=== PATIENT | female | born 1975 | race Caucasian/White ===

== ENCOUNTER 2024-07-08 14:39 | Observation (INO) ==
--- NOTE | 2024-07-08 14:50 | Emergency Department Note ---
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 Patient denies any SOB, back pain, abdominal pain, numbness, tingling, weakness or N/V. Patient states she has had dizziness and chest pain on and off for 3 days MD complaint: Reports chest pain Onset (ago): hour(s) (4) Timing of current episode: Reports episodic Onset: Reports during rest Pain location: Reports substernal Pain radiation: Reports none Severity: mild Quality: Reports tightness Relieving factors: Reports nothing Exacerbating factors: Reports nothing Associated symptoms: Reports syncope Treatment prior to arrival: Reports none Risk Factors Coronary artery disease risk factors: Reports hypertension Thoracic aortic dissection risk factors: Reports none Pulmonary embolism risk factors: Reports none Related Data Allergies Allergy/AdvReac Type Severity Reaction Status Date / Time No Known Drug Allergies Allergy Verified 07/08/24 14:45 Review of Systems Status of ROS 10 or more systems reviewed and unremark able except as noted in history and below Constitutional Denies: fever, chills, change in weight, fatigue, malaise, night sweats or change in sleep pattern Eyes Denies: change in vision, blurry vision, blind spots, light sensitivity or eye discomfort Ears, nose, mouth, and throat Denies: throat pain, neck pain, throat swelling, difficulty swallowing, hoarseness, mouth pain or swelling of lips/tongue Cardiovascular Reports: chest pain and lightheadedness; Denies: palpitations, edema, swelling of feet/ankles, shortness of breath with exertion or shortness of breath when lying down Respiratory Denies: shortness of breath, cough, wheezing, stridor, pain on inspiration or change in phlegm color Gastrointestinal Denies: abdominal pain, nausea, vomiting, coffee grounds in vomit, heartburn or diarrhea Genitourinary Denies: painful urination, urinary frequency, urinary urgency, urinary incontinence, blood in urine, difficulty voiding or decreased urine ouput Musculoskeletal Denies: back pain, neck pain, extremity pain, extremity swelling, joint pain, limited range of motion or joint swelling Integumentary/Breast Denies: rash, itching, redness, skin pain, skin tenderness, skin swelling, sores, new lesion or stretch narayan Neurological Reports: dizziness and vertigo; Denies: headache, numbness in e xtremities, weakness in extremities, lack of coordination, confusion, behavioral changes or slurred speech Psychiatric Denies: anxiety, mood swings, panic attacks, change in sleep pattern, hopelessness or loss of interest Endocrine Denies: excessive urination, excessive thirst, fatigue, cold intolerance or excessive sweating Hematologic/Lymphatic Denies: easy bruising, easy bleeding or enlarged lymph nodes Allergic/Immunologic Denies: hives, throat swelling, tongue swelling, facial swelling or wheezing Exam Constitutional: normal general appearance and no apparent distress Vital Signs - 24 hr 07/08/24 14:39 07/08/24 14:39 07/08/24 15:23 Temperature 97.9 F Pulse Rate 81 80 Respiratory Rate 20 Blood Pressure 154/94 132/84 Pulse Oximetry 100 100 Oxygen Delivery Ks thod Room Air Room Air 07/08/24 15:23 07/08/24 15:23 Temperature Pulse Rate 82 78 Respiratory Rate Blood Pressure 139/85 139/85 Pulse Oximetry Oxygen Delivery Ks thod HENMT: normocephalic, head/scalp atraumatic, hearing grossly normal bilaterally, external ears normal and EACs normal Eyes: PERRL, EOMs intact bilaterally, conjunctivae normal and no scleral icterus Neck/C-Spine: visual inspection normal and trachea midline Lymph: no lymphadenopathy noted Chest: inspection of chest normal Respiratory: breath sounds equal bilaterally, normal respiratory effort, clear to auscultation bilaterally, no wheezes, no rales, no retractions, no use of accessory muscles and chest percussion normal Cardiovascular: normal heart rate noted, regular rhythm noted, no gallop, no rub, no murmur, no JVD, no clicks, peripheral pulses 2+ throughout, no bruits noted and no additional abnormal heart sounds Gastrointestinal: abdomen normal to inspection, abdomen soft to palpation, nontender to palpation, nontender to percussion, nondistended, normoactive bowel sounds, no hepatosplenomegaly, no masses, no pulsatile mass, no ascites and no hernia Genitourinary: no CVA tenderness Back/Pelvis: spine normal to inspection Extremities: normal to inspection, normal to palpation, no tenderness, full ROM, no joint enlargement and no deformity 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 VSS, no s/s of acute distress noted Vital Signs Vital signs: Vital Signs Temperature 97.9 F 07/08/24 14:39 Pulse Rate 81 07/08/24 14:39 Respiratory Rate 20 07/08/24 14:39 Blood Pressure 154/94 07/08/24 14:39 Pulse Oximetry 100 07/08/24 14:39 Oxygen Delivery Method Room Air 07/08/24 14:39 Temperature 97.9 F 07/08/24 14:39 Pulse Rate 78 07/08/24 15:23 Respiratory Rate 20 07/08/24 14:39 Blood Pressure 139/85 07/08/24 15:23 Pulse Oximetry 100 07/08/24 14:39 Oxygen Delivery Method Room Air 07/08/24 14:39 MDM - Chest Pain Differential Diagnosis Differential diagnosis: Likely stable angina Medical Records Data Attestation: I reviewed the patient's medical records. Lab Data Attestation: I reviewed the patient's lab results. Labs: Lab Results 07/08/24 Range/Units 15:00 WBC 7.9 (4.3-9.3) K/uL RBC 4.1 (4.00-5.50) M/uL Hgb 11.4 L (12.5-15.8) gm/dL Hct 34.3 L (35.9-46.7) % MCV 83.7 (81.0-93.7) fl MCH 27.7 (27.6-32.2) pg MCHC 33.1 (33.1-35.3) g/dl RDW 13.4 (11.4-14.2) % Plt Count 304 (152-353) K/uL MPV 8.7 (6.9-10.8) fl Gran % 76.4 H (47.8-71.3) % Lymph % (Auto) 15.5 L (20.0-43.0) % [place] % (Auto) 5.9 (3.6-9.8) % Eos % (Auto) 1.4 (0.4-2.8) % Baso % (Auto) 0.8 (0.1-0.85) Lymph # (Auto) 1.2 (1.1-3.1) [place] # (Auto) 0.5 L (1.1-3.1) Eos # (Auto) 0.1 (0.0-0.2) Baso # (Auto) 0.1 (0.0-0.1) Absolute Gran (auto) 6.0 (2.3-6.0) D-Dimer 1410 H (100-600) ng/mL Sodium 139 (136-145) mmol/L Potassium 3.5 L (3.6-5.2) mmol/L Chloride 102.0 (98-107) mmol/L Carbon Dioxide 29 (21-32) mmol/L Anion Gap 8.0 (4-14) mEq/L BUN 15 (7-18) mg/dL Creatinine 0.8 (0.6-1.3) mg/dL Estimated GFR 90.8 (>59.9) Glucose 114 H (70-110) mg/dL Calcium 9.3 (8.5-10.1) mg/dL Total Bilirubin 0.36 (0.0-1.0) mg/dL AST 26 (15-37) U/L ALT 39 (30-65) U/L Alkaline Phosphatase 86 (50-136) U/L Troponin I High Sens <4.00 L (4.0-60.4) ng/L Total Protein 7.5 (6.4-8.2) g/dL Albumin 3.5 (3.4-5.0) g/dL Imaging Data Imaging ordered: CT scan - chest Attestation: I have reviewed the pertinent imaging results. ECG Data Attestation: I have reviewed the pertinent ECG results. Discharge Plan Discharge Patient Disposition: Admitted As Observation Condition: Stable Chief Complaint: Chest Pain Clinical Impression: Chest pain, Syncope, Cholelithiasis Print Language: Armenian Referrals: Mariam Pulido [Primary Care Provider] - Time of Disposition: 18:38 [facility] Medical History (Updated 07/08/24 @ 14:48 by Tory Dash RN) ADD (attention deficit disorder) Social History Smoking status: never smoker
[2024-07-08 15:07] LABS: Basophils #(Absolute) Auto 0.1 (0.0-0.1); Basophils%(Percent) Auto 0.8 (0.1-0.85); Eosinophils#(Absolute)Auto 0.1 (0.0-0.2); Eosinophils%(Percent) Auto 1.4 % (0.4-2.8); Granulocytes % - Auto 76.4 % (47.8-71.3); Hematocrit 34.3 % (35.9-46.7); Mean Corpuscular Volume 83.7 fl (81.0-93.7); Monocytes #(Absolute)- Auto 0.5 (1.1-3.1); Monocytes %(Percent)- Auto 5.9 % (3.6-9.8); Platelet Count 304 K/uL (152-353); White Blood Count 7.9 K/uL (4.3-9.3)
[2024-07-08 15:14] LABS: Carbon Dioxide 29 mmol/L (21-32); Glucose 114 mg/dL (70-110); Potassium 3.5 mmol/L (3.6-5.2); Sodium 139 mmol/L (136-145)
[2024-07-08] MEDS ORDERED: PIPERACILLIN SODIUM/TAZOBACTAM 3.375 GM VIAL IV ONE (19:55)
[2024-07-08] MEDS ORDERED: 0.9 % SODIUM CHLORIDE MB+ 100 ML IV ONE (19:55)
[2024-07-08] MEDS: PIPERACILLIN/TAZOBACTAM 3.375 3.375 GM in 0.9 % SODIUM CHLORIDE MB+ 100 ML IV STA (19:56)
[2024-07-08] MEDS ORDERED: ONDANSETRON HCL/PF 4 MG/2 ML VIAL ONE (20:08)
[2024-07-08] MEDS: ONDANSETRON HCL/PF 4 MG/2 ML VIAL IVP ONE (20:13)
[2024-07-08] MEDS ORDERED: NITROGLYCERIN 0.4 MG TAB.SUBL (BOTTLE) SL PRN (20:42)
[2024-07-08] MEDS ORDERED: MORPHINE SULFATE 2 MG/ML CARTRIDGE IV ONE (20:55)
[2024-07-08] MEDS: MORPHINE SULFATE 2 MG/ML CARTRIDGE IV PRN (20:59)
[2024-07-09] MEDS: PIPERACILLIN/TAZOBACTAM 3.375 3.375 GM in 0.9 % SODIUM CHLORIDE MB+ 100 ML IV SCH (02:29)
[2024-07-09 04:34] LABS: Basophils%(Percent) Auto 0.5 (0.1-0.85); Granulocytes % - Auto 88.9 % (47.8-71.3); Granulocytes#(Absolute)- Auto 6.3 (2.3-6.0); Hematocrit 34.3 % (35.9-46.7); Mean Corpuscular Volume 83.9 fl (81.0-93.7); Monocytes #(Absolute)- Auto 0.3 (1.1-3.1); Monocytes %(Percent)- Auto 4.8 % (3.6-9.8); Platelet Count 241 K/uL (152-353)
[2024-07-09 04:37] LABS: INR 1.11
[2024-07-09 04:47] LABS: Potassium 3.8 mmol/L (3.6-5.2)
[2024-07-09] MEDS: BUDESONIDE 0.5 MG/2 ML AMPUL.NEB INH SCH (08:42)
[2024-07-09] MEDS: ENOXAPARIN SODIUM 40 MG/0.4 ML SYRINGE SUBQ SCH (09:46)
[2024-07-09] MEDS: PANTOPRAZOLE SODIUM 40 MG TABLET.DR PO SCH (09:46)
[2024-07-09] MEDS: ASPIRIN 81 MG TAB.CHEW PO SCH (09:47)
[2024-07-09] MEDS: IPRATROPIUM/ALBUTEROL SULFATE 3 ML AMPUL.NEB INH SCH ×2 (11:27→16:21)
--- NOTE | 2024-07-09 12:06 | History & Physical Report ---
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 Patient denies any SOB, back pain, abdominal pain, numbness, tingling, weakness or N/V. Patient states she has had dizziness and chest pain on and off for 3 days. Admitted patient to med/surg for further observation and treatment. Day two of hospital stay, patient's chief complaint is epigastric pain and a headache. Symptoms relieved by morphine. Review of Systems Status of ROS 10 or more systems reviewed and unremark able except as noted in history and below Constitutional Denies: fever, chills, change in weight, fatigue, malaise, night sweats or change in sleep pattern Eyes Denies: change in vision, blurry vision, blind spots, light sensitivity or eye discomfort Ears, nose, mouth, and throat Reports: vertigo; Denies: throat pain, neck pain, throat swelling, difficulty swallowing, hoarseness, mouth pain or swelling of lips/tongue Cardiovascular Reports: chest pain and lightheadedness; Denies: palpitations, edema, swelling of feet/ankles, shortness of breath with exertion or shortness of breath when lying down Respiratory Denies: shortness of breath, cough, wheezing, stridor, pain on inspiration or change in phlegm color Gastrointestinal Denies: abdominal pain, nausea, vomiting, coffee grounds in vomit, heartburn, diarrhea or difficulty swallowing Genitourinary Denies: painful urination, urinary frequency, urinary urgency, urinary incontinence, blood in urine, difficulty voiding or decreased urine ouput Musculoskeletal Denies: back pain, neck pain, extremity pain, extremity swelling, joint pain, limited range of motion or joint swelling Integumentary/Breast Denies: rash, itching, redness, skin pain, skin tenderness, skin swelling, sores, new lesion or stretch narayan Neurological Reports: dizziness and vertigo; Denies: headache, numbness in extremities, weakness in extremities, lack of coordination, confusion, behavioral changes or slurred speech Psychiatric Denies: anxiety, mood swings, panic attacks, change in sleep pattern, hopelessness or loss of interest Endocrine Denies: excessive urination, excessive thirst, fatigue, cold intolerance or excessive sweating Hematologic/Lymphatic Denies: easy bruising, easy bleeding or enlarged lymph nodes Allergic/Immunologic Denies: hives, throat swelling, tongue swelling, facial swelling or wheezing PFSH PFSH Medical History ADD (attention deficit disorder) Social History Smoking status: never smoker Problems where you live: no known problems Highest level of school completed/degree received: decline to answer Meds Home Medications and Allergies Allergies Allergy/AdvReac Type Severity Reaction Status Date / Time No Known Drug Allergies Allergy Verified 07/08/24 14:45 Exam Exam: Patient in mild distress with epigastric pain and headache. Constitutional: abnormal general appearance (disheveled), distress noted (mild), abnormal body habitus (obese), no limitations and alert Vital Signs - 24 hr 07/08/24 14:39 07/08/24 14:39 07/08/24 15:23 Temperature 97.9 F Pulse Rate 81 80 Pulse Rate [Brachi al] Respiratory Rate 20 Blood Pressure 154/94 132/84 Blood Pressure [Ri ght Arm] Pulse Oximetry 100 100 Oxygen Delivery Me thod Room Air Room Air Oxygen Flow Rate 07/08/24 15:23 07/08/24 15:23 07/08/24 15:30 Temperature Pulse Rate 82 78 85 Pulse Rate [Brachi al] Respiratory Rate 20 Blood Pressure 139/85 139/85 149/82 Blood Pressure [Ri ght Arm] Pulse Oximetry 100 Oxygen Delivery Ok thod Room Air Oxygen Flow Rate 07/08/24 16:00 07/08/24 16:30 07/08/24 17:00 Temperature Pulse Rate 81 79 77 Pulse Rate [Brachi al] Respiratory Rate 20 20 20 Blood Pressure 132/84 139/85 122/82 Blood Pressure [Ri ght Arm] Pulse Oximetry 100 100 100 Oxygen Delivery Me thod Room Air Room Air Room Air Oxygen Flow Rate 07/08/24 18:00 07/08/24 19:00 07/08/24 20:00 Temperature Pulse Rate 86 81 76 Pulse Rate [Brachi al] Respiratory Rate 20 20 20 Blood Pressure 134/61 116/76 Blood Pressure [Ri ght Arm] Pulse Oximetry 100 100 100 Oxygen Delivery Ok thod Room Air Room Air Room Air Oxygen Flow Rate 07/08/24 20:14 07/08/24 20:40 07/08/24 20:48 Temperature 97.8 F 98.2 F Pulse Rate 78 Pulse Rate [Brachi al] 93 H Respiratory Rate 21 18 Blood Pressure 116/76 Blood Pressure [Ri ght Arm] 148/83 Pulse Oximetry 99 99 100 Oxygen Delivery Me thod Room Air Room Air Oxygen Flow Rate 2 07/09/24 00:07 07/09/24 04:00 07/09/24 08:00 Temperature 98.9 F 98.8 F 98.7 F Pulse Rate Pulse Rate [Brachi al] 91 H 99 H 94 H Respiratory Rate 18 18 19 Blood Pressure Blood Pressure [Ri ght Arm] 159/95 143/82 123/67 Pulse Oximetry 100 100 94 L Oxygen Delivery Me thod Room Air Room Air Room Air Oxygen Flow Rate 07/09/24 11:27 Temperature Pulse Rate Pulse Rate [Brachi al] Respiratory Rate Blood Pressure Blood Pressure [Ri ght Arm] Pulse Oximetry 96 Oxygen Delivery Me thod Oxygen Flow Rate HENMT: normocephalic, head/scalp atraumatic, hearing grossly normal bilaterally, external ears normal and EACs normal Eyes: PERRL, EOMs intact bilaterally, conjunctivae normal and no scleral icterus Neck/C-Spine: visual inspection normal and trachea midline Lymph: no lymphadenopathy noted Chest: inspection of chest normal Respiratory: breath sounds equal bilaterally, normal respiratory effort, clear to auscultation bilaterally, no wheezes, no rales, no retractions, no use of accessory muscles and chest percussion normal Cardiovascular: normal heart rate noted, regular rhythm noted, no gallop, no rub, no murmur, no JVD, no clicks, peripheral pulses 2+ throughout, no bruits noted and no additional abnormal heart sounds Gastrointestinal: abdomen normal to inspection, abdomen soft to palpation, tender to palpation (mild) and (epigastric), nontender to percussion, nondistended, normoactive bowel sounds, no hepatosplenomegaly, no masses, no pulsatile mass, no ascites and no hernia Genitourinary: no CVA tenderness Back/Pelvis: spine normal to inspection Extremities: normal to inspection, normal to palpation, no tenderness, full ROM, no joint enlargement and no deformity 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: 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, no movement abnormality noted, no focal motor deficit noted, no sensory deficits noted, deep tendon reflexes 2+ bilaterally, speech normal, coordination normal, no pronator drift noted, no fasciculations noted and GCS normal Psychiatry: mental status grossly normal, oriented x3, thought process normal, cooperative and affect normal Skin: skin color normal Assessment and Plan Assessment and Plan (1) Chest pain, rule out acute myocardial infarction: Code(s): R07.9 - Chest pain, unspecified (2) Cholelithiasis: Qualifiers: Biliary obstruction: without biliary obstruction Cholecystitis acuity: acute Cholecystitis presence: with cholecystitis Cholelithiasis location: gallbladder and bile duct Qualified Code(s): K80.62 - Calculus of gallbladder and bile duct with acute cholecystitis without obstruction Code(s): K80.20 - Calculus of gallbladder without cholecystitis without obstruction (3) Headache: Qualifiers: Headache chronicity pattern: acute headache Headache type: unspecified Intractability: not intractable Qualified Code(s): R51.9 - Headache, unspecified Code(s): R51.9 - Headache, unspecified (4) Hilar lymphadenopathy: Code(s): R59.0 - Localized enlarged lymph nodes (5) Cyst of right kidney: Code(s): N28.1 - Cyst of kidney, acquired (6) Mediastinal lymphadenopathy: Code(s): R59.0 - Localized enlarged lymph nodes (7) Anemia: Qualifiers: Anemia type: iron deficiency Iron deficiency anemia type: inadequate dietary iron intake Qualified Code(s): D50.8 - Other iron deficiency anemias Code(s): D64.9 - Anemia, unspecified (8) Elevated d-dimer: Code(s): R79.89 - Other specified abnormal findings of blood chemistry (9) Hyperkalemia: Code(s): E87.5 - Hyperkalemia (10) Hypoalbuminemia: Code(s): E88.09 - Other disorders of plasma-protein metabolism, not elsewhere classified (11) ADD (attention deficit disorder): Qualifiers: Attention deficit type: unspecified type Qualified Code(s): F98.8 - Other specified behavioral and emotional disorders with onset usually occurring in childhood and adolescence Code(s): F98.8 - Other specified behavioral and emotional disorders with onset usually occurring in childhood and adolescence Plan 0.6% NS at 100 ml per hour Aspirin 324 mg PO DAILY Piperacillin Sod/Tazobactam Sod 3.375 gm in Sodium Chloride 100 mls @ 200 mls/hr IV Q6H Albuterol Sulfate 3 ml INH RQ4 Budesonide 0.5 mg INH RBID Enoxaparin Sodium 40 mg SUBQ DAILY protonix 40 mg po bid gi cocktail 30 ml po every 4 hours prn simethicone 160 mg po every hours prn peripheral smear duo nebs Nitroglycerin 0.4 mg SL Q5M PRN Morphine Sulfate 2 mg IV Q4H PRN Ondansetron Hcl 4 mg IVP Q6H PRN Results Labs Labs: CBC 07/08/24 07/09/24 Range/Units 15:00 03:00 WBC 7.9 7.0 (4.3-9.3) K/uL RBC 4.1 4.1 (4.00-5.50) M/uL Hgb 11.4 L 11.4 L (12.5-15.8) gm/dL Hct 34.3 L 34.3 L (35.9-46.7) % Plt Count 304 241 (152-353) K/uL Gran % 76.4 H 88.9 H (47.8-71.3) % Lymph % (Auto) 15.5 L 5.8 L (20.0-43.0) % [place] % (Auto) 5.9 4.8 (3.6-9.8) % Eos % (Auto) 1.4 0.0 L (0.4-2.8) % Baso % (Auto) 0.8 0.5 (0.1-0.85) Lymph # (Auto) 1.2 0.4 L (1.1-3.1) [place] # (Auto) 0.5 L 0.3 L (1.1-3.1) Eos # (Auto) 0.1 0.0 (0.0-0.2) Baso # (Auto) 0.1 0.0 (0.0-0.1) Absolute Gran (auto) 6.0 6.3 H (2.3-6.0) CMP 07/08/24 07/09/24 15:00 03:00 Sodium 139 138 Potassium 3.5 L 3.8 Chloride 102.0 99.0 Carbon Dioxide 29 29 BUN 15 10 Creatinine 0.8 0.8 Glucose 114 H 124 H Calcium 9.3 8.9 Liver Function 07/08/24 07/09/24 Range/Units 15:00 03:00 Total Bilirubin 0.36 0.64 (0.0-1.0) mg/dL AST 26 29 (15-37) U/L ALT 39 45 (30-65) U/L Alkaline Phosphatase 86 82 (50-136) U/L Albumin 3.5 3.2 L (3.4-5.0) g/dL Imaging Imaging ordered: Chest x-ray, CT scan - chest, CT scan - head, US - abdomen and other (Gallbladder US) Radiologist's impression: XR CHEST 1V Date of Service: 07/08/24 HISTORY: painpain; COMPARISON: None. FINDINGS: The trachea is midline. The cardiac silhouette is borderline or mildly enlarged in size. The lungs are clear without focal infiltrate or effusion. The bony thorax is unremarkable. IMPRESSION: No acute cardiopulmonary disease. CT HEAD/BRAIN WO CON Date of Service: 07/08/24 HISTORY: syncopesyncope; COMPARISON: None. TECHNIQUE: Contiguous noncontrast axial CT images of the brain. Images reviewed in the axial imaging plane with reformatted sagittal and coronal images.The above CT scan was done with automated exposure control and the mA and kV was adjusted to obtain quality images according to patient size. FINDINGS: No evidence of acute intracranial hemorrhage, mass effect, or midline shift. Normal torres-white matter differentiation. Ventricles normal size and shape. The calvarium appears intact. IMPRESSION: No acute intracranial process seen. Recommend further evaluation with an MRI of the brain if this is of continued clinical concern. CTA CHEST WITH INTRAVENOUS CONTRAST Date of Service: 07/08/24 HISTORY: Elevated D-dimer. TECHNIQUE: Spiral axial CT images are obtained through the chest with the administration of intravenous contrast. Coronal, sagittal and 3D MIP images are reformatted. COMPARISON: None available. FINDINGS: CARDIOVASCULAR: There is no evidence for pulmonary embolic disease. The heart size and mediastinal vascular structures are within normal limits. There is no significant aortic or coronary atherosclerosis seen. No thoracic aortic aneurysm or dissection is noted. MEDIASTINUM AND TINA: There is evidence for symmetrical mediastinal and hilar lymphadenopathy; DDX includes (but is not limited to) granulomatous lymphadenopathy (e.g. sarcoidosis and tuberculosis) , and malignant lymphadenopathy (e.g. lymphoma and metastatic disease). Clinical correlation is advised. No mass lesion, emphysema, or abnormal fluid collection is seen. LUNGS: There is no acute parenchymal infiltrate, lung nodule, or endobronchial obstructing lesion seen. No pleural effusion or pneumothorax is evident. There are minimal dependent atelectatic changes in the posterior lower lung bailon on lung bases. CHEST WALL: There are no chest wall lesions seen. No axillary lymphadenopathy i s noted. BONES AND JOINTS: There is no acute fracture or joint subluxation/dislocation seen. UPPER ABDOMEN: Multiple bilateral renal cysts are seen; largest visible cyst is seen in the left upper pole kidney measuring 4.6 cm. The spleen is grossly unremarkable; upper limits of normal in size, measuring approximately 11.5 cm CC by 6.2 cm transverse by 10.7 cm AP. BILIARY SYSTEM: There is cholelithiasis, consistent with sequela of chronic cholecystitis. Partially imaged gallbladder appears dilated and thickened; cannot rule out acute cholecystitis in the appropriate clinical setting. There appears to be mild intrahepatic biliary ductal dilatation and mildly dilated proximal CBD. Consider follow-up evaluation with HIDA scan to rule out cystic duct (and/or CBD) obstruction and acute cholecystitis as clinically warranted. IMPRESSION: 1. No evidence for pulmonary embolic disease. 2. No evidence for aortic aneurysm or aortic dissection. 3. Symmetrical mediastinal and hilar lymphadenopathy; DDX includes (but is not limited to) granulomatous lymphadenopathy (e.g. sarcoidosis and tuberculosis) , and malignant lymphadenopathy (e.g. lymphoma and metastatic disease). Clinical correlation is advised. 4. No acute parenchymal infiltrate, lung mass, pleural effusion, endobronchial obstructing lesion or pneumothorax seen. 5. Cholelithiasis, consistent with sequela of chronic cholecystitis. 6. Partially imaged gallbladder appears dilated and thickened; cannot rule out acute cholecystitis in the appropriate clinical setting. 7. Appears to be mild intrahepatic biliary ductal dilatation and mildly dilated proximal CBD. 8. Consider follow-up evaluation with HIDA scan to rule out cystic duct (and/or CBD) obstruction and acute cholecystitis as clinically warranted. US GALLBLADDER Date of Service: 07/09/24 HISTORY: CHEST PAIN, ? CHOLECYSTITIS ACUTE VS CHRONICCHEST PAIN, ? CHOLECYSTITIS ACUTE VS CHRONIC; PRIOR REPORT FROM 2019 NOTING GB STONES. COMPARISON: Chest CT 07/08/2024 TECHNIQUE: 100 images made by the visual display associate. Torres scale and color-flow images of the right upper quadrant were obtained. FINDINGS: The liver has normal echogenicity and size. No mass or intrahepatic biliary duct dilatation is present. The intrahepatic inferior vena cava was imaged. The visualized hepatic veins are patent with blood flow toward the right atrium. The portal vein is patent with blood flow toward the liver. The hepatic artery was patent. Limited visualization of the pancreas shows no significant abnormality. Echogenic areas with shadowing are present compatible with gallstones. But there is no wall thickening or pericholecystic fluid. No extrahepatic biliary duct dilatation; common duct is normal. The right kidney is normal in size and echogenicity. No hydronephrosis. Simple cyst measures 23 mm. IMPRESSION: 1. Cholelithiasis 2. Simple cyst right kidney
[2024-07-09] MEDS: GI COCKTAIL 30 ML SOLUTION PO PRN (14:10)
[2024-07-09] MEDS: SIMETHICONE 80 MG TAB PO SCH (17:23)
[2024-07-09 20:23] LABS: Urine Appearance CLEAR (CLEAR); Urine Blood 4+ (NEG - TRACE); Urine Color YELLOW (STRAW/YELL.); Urine Urobilinogen Normal (NORMAL)
[2024-07-09 20:32] LABS: Amphetamine Screen Urine POS. (NEGATIVE); Cannabinoid Screen Urine POS. (NEGATIVE); Cocaine Screen Urine NEG. (NEGATIVE); Methadone Screen Urine NEG. (NEGATIVE); Opiate Screen Urine POS. (NEGATIVE)
[2024-07-09 20:48] LABS: Urine Amorphous Sediment Negative (Negative); Urine Yeast Negative (Negative)
[2024-07-10] MEDS: ONDANSETRON HCL/PF 4 MG/2 ML VIAL IVP PRN (03:44)
[2024-07-10 05:40] LABS: Basophils #(Absolute) Auto 0.1 (0.0-0.1); Basophils%(Percent) Auto 0.8 (0.1-0.85); Eosinophils%(Percent) Auto 0.2 % (0.4-2.8); Granulocytes % - Auto 78.9 % (47.8-71.3); Granulocytes#(Absolute)- Auto 5.3 (2.3-6.0); Hematocrit 33.4 % (35.9-46.7); Mean Corpuscular Volume 83.8 fl (81.0-93.7); Monocytes #(Absolute)- Auto 0.6 (1.1-3.1); Monocytes %(Percent)- Auto 8.6 % (3.6-9.8); Platelet Count 230 K/uL (152-353); White Blood Count 6.7 K/uL (4.3-9.3)
[2024-07-10 05:49] LABS: Potassium 3.4 mmol/L (3.6-5.2)
[2024-07-10 08:16] VITALS: RESP 20
[2024-07-10] MEDS: POTASSIUM CHLORIDE 20 MEQ TAB.ER.PRT PO ONE (10:43)
--- NOTE | 2024-07-10 11:07 | Discharge Summary ---
DS: Providers Provider Date of admission: 07/08/24 18:40 Primary care physician: Mariam Pulido Admitting clinician: Ewelina Tucker Attending physician on admission: Rachel Smith Attending physician on discharge: Rachel Smith Discharging clinician: Rachel Smith Anticipated date of discharge: 07/10/24 DS: Diagnosis Discharge Diagnosis (1) Cholelithiasis: Qualifiers: Biliary obstruction: without biliary obstruction Cholecystitis acuity: acute Cholecystitis presence: with cholecystitis Cholelithiasis location: gallbladder and bile duct Qualified Code(s): K80.62 - Calculus of gallbladder and bile duct with acute cholecystitis without obstruction (2) Chest pain, rule out acute myocardial infarction: (3) Hilar lymphadenopathy: (4) Headache: Qualifiers: Headache chronicity pattern: acute headache Headache type: unspecified Intractability: not intractable Qualified Code(s): R51.9 - Headache, unspecified (5) Cyst of right kidney: (6) Mediastinal lymphadenopathy: (7) Anemia: Qualifiers: Anemia type: iron deficiency Iron deficiency anemia type: inadequate dietary iron intake Qualified Code(s): D50.8 - Other iron deficiency anemias (8) Elevated d-dimer: (9) Hyperkalemia: (10) Hypoalbuminemia: (11) ADD (attention deficit disorder): Qualifiers: Attention deficit type: unspecified type Qualified Code(s): F98.8 - Other specified behavioral and emotional disorders with onset usually occurring in childhood and adolescence Plan Aspirin 324 mg PO DAILY Piperacillin Sod/Tazobactam Sod 3.375 gm in Sodium Chloride 100 mls @ 200 mls/hr IV Q6H Albuterol Sulfate 3 ml INH RQ4 Budesonide 0.5 mg INH RBID Pantoprazole Sodium 40 mg PO BID Enoxaparin Sodium 40 mg SUBQ DAILY Simethicone 160 mg PO TID Nitroglycerin 0.4 mg SL Q5M PRN Morphine Sulfate 2 mg IV Q4H PRN Ondansetron Hcl 4 mg IVP Q6H PRN Gi Cocktail 30 ml PO Q2H PRN Discharge home for self care. 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 Patient denies any SOB, back pain, abdominal pain, numbness, tingling, weakness or N/V. Patient states she has had dizziness and chest pain on and off for 3 days. Admitted patient to med/surg for further observation and treatment. Day two of hospital stay, patient's chief complaint is epigastric pain and a headache. Symptoms relieved by morphine. Day three of hospital stay, patient continues to complain of epigastric pain, relieved with pain medication. Nausea and vomiting has resolved and WBC impro colin. Patient is ready to discharge home for self care. Follow up with PCP in 5-7 days of discharge or prior if needed. Patient to be referred to GI specialist in reference to epigastric pain and Cholelithiasis. Referral to Nephrology is recommended due to Gallbladder US showing cyst on right kidney. Status at Discharge Overall status at discharge: patient is not back to baseline Time Spent with Patient Time attestation: Total time spent providing and/or coordinating discharge services: 68 Time spent: greater than 30 minutes Exam Exam: Patient in ring's position. Constitutional: abnormal general appearance (disheveled), no apparent distress, abnormal body habitus (obese), no limitations and alert Vital Signs - 24 hr 07/09/24 11:27 07/09/24 12:25 07/09/24 16:00 Temperature 98 F 98.5 F Pulse Rate [Brachi al] 94 H 92 H Respiratory Rate 19 19 Blood Pressure [Ri ght Arm] 109/65 134/76 Pulse Oximetry 96 96 95 Oxygen Delivery Me thod Room Air Nasal Cannula Oxygen Flow Rate 2 Fraction of Inspir ed Oxygen 07/09/24 20:00 07/09/24 20:22 07/09/24 20:22 Temperature 99.0 F Pulse Rate [Brachi al] 88 Respiratory Rate 19 Blood Pressure [Ri ght Arm] 137/75 Pulse Oximetry 96 98 Oxygen Delivery Me thod Room Air Nasal Cannula Oxygen Flow Rate 2 Fraction of Inspir ed Oxygen 28 07/10/24 00:00 07/10/24 00:10 07/10/24 04:00 Temperature 99.1 F 98.5 F Pulse Rate [Brachi al] 108 H 107 H Respiratory Rate 18 18 Blood Pressure [Ri ght Arm] 120/80 110/58 Pulse Oximetry 96 93 L 96 Oxygen Delivery Me thod Room Air Room Air Oxygen Flow Rate Fraction of Inspir ed Oxygen 07/10/24 04:05 07/10/24 08:00 Temperature 98.8 F Pulse Rate [Brachi al] 92 H Respiratory Rate 20 Blood Pressure [Ri ght Arm] 126/73 Pulse Oximetry 94 L 98 Oxygen Delivery Me thod Room Air Oxygen Flow Rate Fraction of Inspir ed Oxygen HENMT: normocephalic, head/scalp atraumatic, hearing grossly normal bilaterally, external ears normal and EACs normal Eyes: PERRL, EOMs intact bilaterally, conjunctivae normal and no scleral icterus Neck/C-Spine: visual inspection normal and trachea midline Lymph: no lymphadenopathy noted Chest: inspection of chest normal Respiratory: breath sounds equal bilaterally, normal respiratory effort, clear to auscultation bilaterally, no wheezes, no rales, no retractions, no use of accessory muscles and chest percussion normal Cardiovascular: normal heart rate noted, regular rhythm noted, no gallop, no rub, no murmur, no JVD, no clicks, peripheral pulses 2+ throughout, no bruits noted and no additional abnormal heart sounds Gastrointestinal: abdomen normal to inspection, abdomen soft to palpation, tender to palpation (mild) and (epigastric), nontender to percussion, nond istended, normoactive bowel sounds, no hepatosplenomegaly, no masses, no pulsatile mass, no ascites and no hernia Genitourinary: no CVA tenderness Back/Pelvis: spine normal to inspection Extremities: normal to inspection, normal to palpation, no tenderness, full ROM, no joint enlargement and no deformity Neurology: emt basic II-XII intact, no movement abnormality noted, no focal motor deficit noted, no sensory deficits noted, deep tendon reflexes 2+ bilaterally, speech normal, coordination normal, no pronator drift noted, no fasciculations noted and GCS normal Psychiatry: mental status grossly normal, oriented x3, thought process normal, cooperative and affect normal Skin: skin color normal DS: Data Data Completed and Pending Labs on day of discharge: Labs from last 24 hours 07/10/24 07/09/24 07/09/24 05:20 20:00 12:56 WBC 6.7 RBC 4.0 Hgb 11.2 L Hct 33.4 L MCV 83.8 MCH 28.0 MCHC 33.4 RDW 13.5 Plt Count 230 MPV 8.7 Gran % 78.9 H Lymph % (Auto) 11.5 L [place] % (Auto) 8.6 Eos % (Auto) 0.2 L Baso % (Auto) 0.8 Lymph # (Auto) 0.8 L [place] # (Auto) 0.6 L Eos # (Auto) 0.0 Baso # (Auto) 0.1 Absolute Gran (auto) 5.3 Sodium 137 Potassium 3.4 L Chloride 101.0 Carbon Dioxide 28 Anion Gap 8.0 BUN 10 Creatinine 0.6 Estimated GFR 110.7 Glucose 116 H Calcium 8.6 Phosphorus 3.1 Magnesium 2.0 Total Bilirubin 0.46 AST 37 ALT 54 Alkaline Phosphatase 91 Total Protein 7.0 Albumin 3.0 L Urine Color Yellow Urine Appearance Clear Ur Specific Jerome 1.010 Urine Protein Negative Urine Glucose (UA) Normal Urine Ketones Negative Urine Occult Blood 4+ Urine Nitrite Negative Urine Bilirubin Negative Urine Urobilinogen Normal Ur Leukocyte Esterase Negative Urine RBC 2 - 5 Urine WBC 2 - 5 Ur Epithelial Cells Few Amorphous Sediment Negative Urine Bacteria Trace Urine Mucus Negative Urine Trichomonas Negative Urine Yeast Negative Fluid pH 5.0 Urine Opiates Screen Pos. Urine Methadone Screen Neg. Barbiturate Screen Neg. Ur Phencyclidine Scrn Neg. Amphetamines Screen Pos. U Benzodiazepines Scrn Neg. Urine Cocaine Screen Neg. U Marijuana (THC) Screen Pos. Imaging Chest x-ray: Radiologist's impression: XR CHEST 1V Date of Service: 07/08/24 HISTORY: painpain; COMPARISON: None. FINDINGS: The trachea is midline. The cardiac silhouette is borderline or mildly enlarged in size. The lungs are clear without focal infiltrate or effusion. The bony thorax is unremarkable. IMPRESSION: No acute cardiopulmonary disease. CT scan - head: Radiologist's impression: CT HEAD/BRAIN WO CON Date of Service: 07/08/24 HISTORY: syncopesyncope; COMPARISON: None. TECHNIQUE: Contiguous noncontrast axial CT images of the brain. Images reviewed in the axial imaging plane with reformatted sagittal and coronal images.The above CT scan was done with automated exposure control and the mA and kV was adjusted to obtain quality images according to patient size. FINDINGS: No evidence of acute intracranial hemorrhage, mass effect, or midline shift. Normal torres-white matter differentiation. Ventricles normal size and shape. The calvarium appears intact. IMPRESSION: No acute intracranial process seen. Recommend further evaluation with an MRI of the brain if this is of continued clinical concern. CT scan - chest: Radiologist's impression: CTA CHEST WITH INTRAVENOUS CONTRAST Date of Service: 07/08/24 HISTORY: Elevated D-dimer. TECHNIQUE: Spiral axial CT images are obtained through the chest with the administration of intravenous contrast. Coronal, sagittal and 3D MIP images are reformatted. COMPARISON: None available. FINDINGS: CARDIOVASCULAR: There is no evidence for pulmonary embolic disease. The heart size and mediastinal vascular structures are within normal limits. There is no significant aortic or coronary atherosclerosis seen. No thoracic aortic aneurysm or dissection is noted. MEDIASTINUM AND TINA: There is evidence for symmetrical mediastinal and hilar lymphadenopathy; DDX includes (but is not limited to) granulomatous lymphadenopathy (e.g. sarcoidosis and tuberculosis) , and malignant lymphadenopathy (e.g. lymphoma and metastatic disease). Clinical correlation is advised. No mass lesion, emphysema, or abnormal fluid collection is seen. LUNGS: There is no acute parenchymal infiltrate, lung nodule, or endobronchial obstructing lesion seen. No pleural effusion or pneumothorax is evident. There are minimal dependent atelectatic changes in the posterior lower lung bailon on lung bases. CHEST WALL: There are no chest wall lesions seen. No axillary lymphadenopathy is noted. BONES AND JOINTS: There is no acute fracture or joint subluxation/dislocation seen. UPPER ABDOMEN: Multiple bilateral renal cysts are seen; largest visible cyst is seen in the left upper pole kidney measuring 4.6 cm. The spleen is grossly unremarkable; upper limits of normal in size, measuring approximately 11.5 cm CC by 6.2 cm transverse by 10.7 cm AP. BILIARY SYSTEM: There is cholelithiasis, consistent with sequela of chronic cholecystitis. Partially imaged gallbladder appears dilated and thickened; cannot rule out acute cholecystitis in the appropriate clinical setting. There appears to be mild intrahepatic biliary ductal dilatation and mildly dilated proximal CBD. Consider follow-up evaluation with HIDA scan to rule out cystic duct (and/or CBD) obstruction and acute cholecystitis as clinically warranted. IMPRESSION: 1. No evidence for pulmonary embolic disease. 2. No evidence for aortic aneurysm or aortic dissection. 3. Symmetrical mediastinal and hilar lymphadenopathy; DDX includes (but is not limited to) granulomatous lymphadenopathy (e.g. sarcoidosis and tuberculosis) , and malignant lymphadenopathy (e.g. lymphoma and metastatic disease). Clinical correlation is advised. 4. No acute parenchymal infiltrate, lung mass, pleural effusion, endobronchial obstructing lesion or pneumothorax seen. 5. Cholelithiasis, consistent with sequela of chronic cholecystitis. 6. Partially imaged gallbladder appears dilated and thickened; cannot rule out acute cholecystitis in the appropriate clinical setting. 7. Appears to be mild intrahepatic biliary ductal dilatation and mildly dilated proximal CBD. 8. Consider follow-up evaluation with HIDA scan to rule out cystic duct (and/or CBD) obstruction and acute cholecystitis as clinically warranted. Gallbladder US: Radiologist's impression: US GALLBLADDER Date of Service: 07/09/24 HISTORY: CHEST PAIN, ? CHOLECYSTITIS ACUTE VS CHRONICCHEST PAIN, ? CHOLECYSTITIS ACUTE VS CHRONIC; PRIOR REPORT FROM 2019 NOTING GB STONES. COMPARISON: Chest CT 07/08/2024 TECHNIQUE: 100 images made by the scaffolding helper. Torres scale and color-flow images of the right upper quadrant were obtained. FINDINGS: The liver has normal echogenicity and size. No mass or intrahepatic biliary duct dilatation is present. The intrahepatic inferior vena cava was imaged. The visualized hepatic veins are patent with blood flow toward the right atrium. The portal vein is patent with blood flow toward the liver. The hepatic artery was patent. Limited visualization of the pancreas shows no significant abnormality. Echogenic areas with shadowing are present compatible with gallstones. But there is no wall thickening or pericholecystic fluid. No extrahepatic biliary duct dilatation; common duct is normal. The right kidney is normal in size and echogenicity. No hydronephrosis. Simple cyst measures 23 mm. IMPRESSION: 1. Cholelithiasis 2. 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 Patient denies any SOB, back pain, abdominal pain, numbness, tingling, weakness or N/V. Patient states she has had dizziness and chest pain on and off for 3 days. Admitted patient to med/surg for further observation and treatment. Day two of hospital stay, patient's chief complaint is epigastric pain and a headache. Symptoms relieved by morphine. Day three of hospital stay, patient continues to complain of epigastric pain, relieved with pain medication. Nausea and vomiting has resolved and WBC improved. Patient is ready to discharge home for self care. Follow up with PCP in 5-7 days of discharge or prior if needed. Patient to be referred to GI specialist in reference to epigastric pain and Cholelithiasis. Referral to Neph rology is recommended due to Gallbladder US showing cyst on right kidney. Interventions: Discharge Assessment Last Done: 07/10/24 19:23 MED/SURG & ICU Observation Charge Sheet Last Done: 07/10/24 19:25 Print Language: Macedonian Follow-Ups: Mariam Pulido [Primary Care Provider] - 07/15/24 9:15 am Discharge Date/Time: 07/10/24 19:25
[2024-07-10] MEDS: 0.9 % SODIUM CHLORIDE 1000 ML 1,000 ML IV SCH (16:08)
[2024-07-10 16:15] VITALS: BP 119/70; PULSE 85; TEMP 98.2
== END 2024-07-10 19:25 | disposition short-term general hospital (02) ==
LOC: MS 14:39 → ED 14:39 → MS 20:26
PROVIDERS: ADMIT Nurse Practitioner Family; ATTEND Family Medicine
DX: E88.09 Other disorders of plasma-protein metabolism, not elsewhere classified; E87.5 Hyperkalemia; F98.8 Other specified behavioral and emotional disorders with onset usually occurring in childhood and adolescence; R51.9 Headache, unspecified; N28.1 Cyst of kidney, acquired; R07.2 Precordial pain; R79.89 Other specified abnormal findings of blood chemistry; K80.62 Calculus of gallbladder and bile duct with acute cholecystitis without obstruction; I10 Essential (primary) hypertension; R59.0 Localized enlarged lymph nodes; D50.8 Other iron deficiency anemias